=== PATIENT | male | born 1975 | race Two or more races ===

== ENCOUNTER 2020-10-09 04:52 | Emergency (ER) | payer BC ==
[~2020-10-09] VITALS: Ht 170.2 cm; Wt 122.0 kg
[2020-10-09] MEDS ORDERED: LIDOCAINE 2%/EPI 1:100,000 20 ML VIAL. INJ ONE (05:30)
[2020-10-09] MEDS ORDERED: FAMOTIDINE 20 MG TABLET. PO ONE (05:30)
--- NOTE | 2020-10-09 05:33 | PHYS DOC ---
Past Medical History Past Medical History: No Pertinent History Past Surgical History: No Surgical History Smoking Status: Current Every Day Smoker Alcohol Use: Occasionally Adult General Chief Complaint Chief Complaint: FOOT INJURY PAIN HPI HPI Patient is a 45 year old male who denies any past medical history presenting the emergency department for left foot laceration. Patient states that he was in his house with a lamp was knocked off the desk and shattered onto his foot causing a laceration to the left third digit. Denies any additional injury. Review of Systems Review of Systems Constitutional: Denies fever or chills [] Eyes: Denies change in visual acuity, redness, or eye pain [] HENT: Denies nasal congestion or sore throat [] Respiratory: Denies cough or shortness of breath [] Cardiovascular: No additional information not addressed in HPI [] GI: Denies abdominal pain, nausea, vomiting, bloody stools or diarrhea [] : Denies dysuria or hematuria [] Musculoskeletal: Denies back pain or joint pain [] Integument: Denies rash or skin lesions, + foot laceration Neurologic: Denies headache, focal weakness or sensory changes [] Endocrine: Denies polyuria or polydipsia [] All other systems were reviewed and found to be within normal limits, except as documented in this note. Current Medications Current Medications Current Medications Medications (Trade) Dose Ordered Sig/[facility] Start Time Stop Time Status Last Admin Dose Admin Famotidine (Pepcid) 20 mg 1X ONCE 10/09/20 05:30 10/09/20 05:33 DC 10/09/20 05:32 20 MG Lidocaine/ Epinephrine (LIDOCAINE 2%-EPI 1:100,000 multi-dose) 20 ml 1X ONCE 10/09/20 05:30 10/09/20 05:31 DC 10/09/20 05:29 20 ML Nitroglycerin (Nitro-Bid Oint) 0.5 inch 1X ONCE 10/09/20 06:30 10/09/20 06:31 Allergies Allergies Allergies Coded Allergies Type Severity Reaction Last Updated Verified No Known Drug Allergies 10/09/20 No Physical Exam Physical Exam Constitutional: Well developed, well nourished, no acute distress, non-toxic appearance. [] HENT: Normocephalic, atraumatic, bilateral external ears normal, oropharynx moist, no oral exudates, nose normal. [] Eyes: PERRLA, EOMI, conjunctiva normal, no discharge. [] Neck: Normal range of motion, no tenderness, supple, no stridor. [] Cardiovascular:Heart rate regular rhythm, no murmur [] Lungs & Thorax: Bilateral breath sounds clear to auscultation [] Abdomen: Bowel sounds normal, soft, no tenderness, no masses, no pulsatile masses. [] Skin: Warm, dry, no erythema, no rash. 2 cm incision to the dorsal surface of the left 2ND toe Back: No tenderness, no CVA tenderness. [] Extremities: No tenderness, no cyanosis, no clubbing, ROM intact, no edema. [] Neurologic: Alert and oriented X 3, normal motor function, normal sensory function, no focal deficits noted. [] Psychologic: Affect normal, judgement normal, mood normal. [] Current Patient Data Vital Signs Vital Signs Date Time Temp Pulse Resp B/P (MAP) Pulse Ox O2 Delivery O2 Flow Rate FiO2 10/09/20 04:55 97.6 107 20 120/78 (92) 94 Room Air 97.6 EKG EKG [] Radiology/Procedures Radiology/Procedures [] Course & Med Decision Making Course & Med Decision Making Pertinent Labs and Imaging studies reviewed. (See chart for details) 45-year-old male with a laceration to the 2ND third toe. At this time will irrigate, clean and repair with suture Dragon Disclaimer Dragon Disclaimer This electronic medical record was generated, in whole or in part, using a voice recognition dictation system. Departure Departure Impression: Primary Impression: Toe laceration Disposition: 01 DC HOME SELF CARE/HOMELESS Condition: GOOD Patient Instructions: Laceration Care, Adult Additional Instructions: EMERGENCY DEPARTMENT GENERAL DISCHARGE INSTRUCTIONS Thank you for coming to [facility] Emergency Department (ED) today and trusting us with you care. We trust that you had a positive experience in our Emergency Department. If you wish to speak to the department management, you may call the Director at [phone]. YOUR FOLLOW UP INSTRUCTIONS ARE FOLLOWS: 1. Do you have a private Doctor? If you do not have a private doctor, please ask for a resource list of physicians or clinics that may be able to assist you with follow up care. 2. The Emergency Physicain has interpreted your x-rays. The X-Ray specialist will also review them. If there is a change in the findings, you will be notified in 48 hours when at all possible. 3. A lab test or culture has been done, your results will be reviewed and you will be notified if you need a change in treatment. ADDITIONAL INSTRUCTIONS AND INFORMATION: 1. Your care today has been supervised by a physician who is specially trained in emergency care. Many problems require more than one evaluation for a complete diagnosis and treatment. We recommend that you schedule your follow up appointment as recommended to ensure complete treatment of you illness or injury. If you are unable to obtain follow up care and continue to have a problem, or if your condition worsens, we recommend that you return to the ED. 2. We are not able to safely determine your condition over the phone nor are we able to give sound medical advice over the phone. For these safety reasons, if you call for medical advice we will ask you to come to the ED for further evaluation. 3. If you have any questions regarding these discharge instructions please call the ED at [phone]. SAFETY INFORMATION: In the interest of safety, wellness, and injury prevention; we encourage you to wear your sealbelt, if you smoke; quite smoking, and we encourage family to use a protective helmet for bicycling and other sporting events that present an increased risk for head injury. IF YOUR SYMPTOMS WORSEN OR NEW SYMPTOMS DEVELOP, OR YOU HAVE CONCERNS ABOUT YOUR CONDITION; OR IF YOUR CONDITION WORSENS WHILE YOU ARE WAITING FOR YOUR FOLLOW UP APPOINTMENT; EITHER CONTACT YOUR PRIMARY CARE DOCTOR, THE PHYSICIAN WHOSE NAME AND NUMBER YOU WERE GIVEN, OR RETURN TO THE ED IMMEDIATELY. Laceration Repair Lac Repair Indication: L TOE LACERATION Procedure: The patient was placed in the appropriate position and a digital block was administered. The area was then copiously irrigated. The laceration was sutured in a simple interrupted fashion using 3-0 Prolene. Total repaired wound length: 1 cm. Other Items: The patient tolerated the procedure well. Complications: None. KENAN DAY MD Oct 09, 2020 05:33
[2020-10-09 06:27] VITALS: BP 128/77
[2020-10-09] MEDS ORDERED: NITROGLYCERIN OINT 1 GM PACKET. TP ONE (06:30)
[2020-10-09] MEDS ORDERED: NEOMY/BACITR/POLYMYXIN OINT PACKET. TP ONE ×2 (06:41→07:00)
== END 2020-10-09 06:50 | disposition home or self-care (01) ==
LOC: ER 04:52
DX: S91.115A Laceration without foreign body of left lesser toe(s) without damage to nail, initial encounter (principal); F17.200 Nicotine dependence, unspecified, uncomplicated; W22.8XXA Striking against or struck by other objects, initial encounter; Y93.89 Activity, other specified; Y92.89 Other specified places as the place of occurrence of the external cause; Y99.8 Other external cause status
CPT/HCPCS: 12001; 99283; J3490

== ENCOUNTER 2020-10-18 04:23 | Emergency (ER) | payer BC ==
[~2020-10-18] VITALS: Ht 180.3 cm; Wt 118.2 kg
[2020-10-18 04:40] VITALS: BP 150/101
--- NOTE | 2020-10-18 04:51 | PHYS DOC ---
Past Medical History Past Medical History: No Pertinent History Past Surgical History: No Surgical History Smoking Status: Current Every Day Smoker Alcohol Use: Occasionally General Adult EDM: Chief Complaint: SUTURE/STAPLE REMOVAL HPI: HPI: 45 yo M past medical history of tobacco dependence, presents the ED requesting suture removal from left 2nd toe, s/p blunt injury to foot on 10/09 with 3 sutures. Patient reports no complications with sutures. States bruising still present-no wound dehiscence, purulent drainage or spreading rash. With full range of motion of left toes. Review of Systems: Review of Systems: Constitutional: Denies fever or chills. [] Eyes: Denies change in visual acuity. [] HENT: Denies nasal congestion or sore throat. [] Respiratory: Denies cough or shortness of breath. [] Cardiovascular: Denies chest pain or edema. [] GI: Denies abdominal pain, nausea, vomiting, bloody stools or diarrhea. [] : Denies dysuria. [] Musculoskeletal: Denies back pain or joint pain. [] Integument: Denies rash. [] Neurologic: Denies headache, focal weakness or sensory changes. [] Endocrine: Denies polyuria or polydipsia. [] Lymphatic: Denies swollen glands. [] Psychiatric: Denies depression or anxiety. [] Heart Score: Risk Factors: Risk Factors: DM, Current or recent (<one month) smoker, HTN, HLP, family history of CAD, obesity. Risk Scores: Score 0 - 3: 2.5% MACE over next 6 weeks - Discharge Home Score 4 - 6: 20.3% MACE over next 6 weeks - Admit for Clinical Observation Score 7 - 10: 72.7% MACE over next 6 weeks - Early Invasive Strategies Allergies: Allergies: Allergies Coded Allergies Type Severity Reaction Last Updated Verified No Known Drug Allergies 10/09/20 No Physical Exam: PE: Constitutional: Well developed, well nourished, no acute distress, non-toxic appearance. HENT: Normocephalic, atraumatic, Eyes: EOMI, conjunctiva normal, no discharge. Neck: Normal range of motion, supple, Cardiovascular: S1/2 present, regular rhythm Lungs & Thorax: Speaking in full sentences, bilateral equal chest rise, no tachypnea or increased work of breathing Abdomen: soft, no tenderness, Skin: Warm, dry, no erythema or warmth, petechiae over distal foot just proximal to the second digit, resolving bruise over the laceration site, no wound dehiscence with 3 sutures removed, Extremities: No tenderness, no cyanosis, no edema Neurologic: Alert and oriented X 3, normal motor function, normal sensory function, no focal deficits noted. [] Psychologic: Affect normal, judgement normal, mood normal. [] Current Patient Data: Vital Signs: Vital Signs Date Time Temp Pulse Resp B/P (MAP) Pulse Ox O2 Delivery O2 Flow Rate FiO2 10/18/20 04:40 98.0 96 16 150/101 (117) 99 Room Air 98.0 EKG: EKG: [] Radiology/Procedures: Radiology/Procedures: [] Course & Med Decision Making: Course & Med Decision Making Pertinent Labs and Imaging studies reviewed. (See chart for details) Encounter for suture removal. Patient tolerated well with no complications. I spoken with the patient and her caregivers. I explained the patient's condition, diagnoses and treatment plan based on the information available to me at this time. I have answered the patient and her caregiver's questions and addressed any concerns. The patient and her caregivers have a good understanding of patient's diagnosis, condition and treatment plan as can be expected at this point. Vital signs have been stable. Patient's condition is stable and appropriate for discharge from the emergency department. Patient will pursue further outpatient evaluation with primary care physician or other designated or consulting physician as outlined in the discharge instructions. The patient and/or caregivers are agreeable to this plan of care and follow-up instructions have been explained in detail. The patient and/or caregivers have received these instructions in written form and have expressed an understanding of the discharge instructions. The patient and/or caregivers are aware that any significant change of condition or worsening of symptoms should prompt immediate return to this or the closest emergency department or call to 911. Neil Disclaimer: Neil Disclaimer: This electronic medical record was generated, in whole or in part, using a voice recognition dictation system. Departure Departure Impression: Primary Impression: Encounter for removal of sutures Disposition: 01 DC HOME SELF CARE/HOMELESS Condition: STABLE Referrals: NO PCP (PCP) FOLLOW UP WITH FAMILY MEDICINE: Family Medicine Address: [address] [place] [id number] Patient Instructions: Suture Removal Additional Instructions: EMERGENCY DEPARTMENT GENERAL DISCHARGE INSTRUCTIONS Thank you for coming to [facility] Emergency Department (ED) today and trusting us with you care. We trust that you had a positive experience in our Emergency Department. If you wish to speak to the department management, you may call the Director at [phone]. YOUR FOLLOW UP INSTRUCTIONS ARE FOLLOWS: 1. Do you have a private Doctor? If you do not have a private doctor, please ask for a resource list of physicians or clinics that may be able to assist you with follow up care. 2. The Emergency Physicain has interpreted your x-rays. The X-Ray specialist will also review them. If there is a change in the findings, you will be notified in 48 hours when at all possible. 3. A lab test or culture has been done, your results will be reviewed and you will be notified if you need a change in treatment. ADDITIONAL INSTRUCTIONS AND INFORMATION: 1. Your care today has been supervised by a physician who is specially trained in emergency care. Many problems require more than one evaluation for a complete diagnosis and treatment. We recommend that you schedule your follow up appointment as recommended to ensure complete treatment of you illness or injury. If you are unable to obtain follow up care and continue to have a problem, or if your condition worsens, we recommend that you return to the ED. 2. We are not able to safely determine your condition over the phone nor are we able to give sound medical advice over the phone. For these safety reasons, if you call for medical advice we will ask you to come to the ED for further evaluation. 3. If you have any questions regarding these discharge instructions please call the ED at [phone]. SAFETY INFORMATION: In the interest of safety, wellness, and injury prevention; we encourage you to wear your sealbelt, if you smoke; quite smoking, and we encourage family to use a protective helmet for bicycling and other sporting events that present an increased risk for head injury. IF YOUR SYMPTOMS WORSEN OR NEW SYMPTOMS DEVELOP, OR YOU HAVE CONCERNS ABOUT YOUR CONDITION; OR IF YOUR CONDITION WORSENS WHILE YOU ARE WAITING FOR YOUR FOLLOW UP APPOINTMEN T; EITHER CONTACT YOUR PRIMARY CARE DOCTOR, THE PHYSICIAN WHOSE NAME AND NUMBER YOU WERE GIVEN, OR RETURN TO THE ED IMMEDIATELY. JACK GRANT DO Oct 18, 2020 04:51
== END 2020-10-18 04:53 | disposition home or self-care (01) ==
LOC: ER 04:23
DX: S91.115D Laceration without foreign body of left lesser toe(s) without damage to nail, subsequent encounter (principal); F17.200 Nicotine dependence, unspecified, uncomplicated; X58.XXXD Exposure to other specified factors, subsequent encounter
CPT/HCPCS: 99281